=== PATIENT | female | born 1990 | race American Indian/Alaskan Native ===

== ENCOUNTER 2017-07-18 18:15 | Outpatient (CLI) | payer OTHER ==
[2017-07-18] MEDS ORDERED: FOLIC ACID0.4 MG PO (19:49)
[2017-07-18] MEDS ORDERED: PRENATAL TABLE1 EAC1 PO (19:49)
== END 2017-07-19 11:38 | disposition home or self-care (01) ==
LOC: OBS/DEL 18:15
DX: O60.03 Preterm labor without delivery, third trimester (principal); Z34.83 Encounter for supervision of other normal pregnancy, third trimester

== ENCOUNTER 2017-08-13 11:44 | Inpatient (IN) | payer OTHER ==
[~2017-08-13] VITALS: Ht 162.6 cm; Wt 66.2 kg
[~2017-08-13 11:44] MED LIST: FOLIC ACID0.4 MG PO; PRENATAL TABLE1 EAC1 PO
[2017-08-13] MEDS ORDERED: PRENATAL TABLE1 EACH PO (12:21)
== END 2017-08-15 14:14 | disposition home or self-care (01) | DRG 775 ==
LOC: OB/GYN 11:44 → LDR 11:44 → OB/GYN 21:59
PROC: 10E0XZZ Delivery of Products of Conception, External Approach (ICD-10-PCS; principal; 2017-08-13)
PROC: 4A1HXCZ Monitoring of Products of Conception, Cardiac Rate, External Approach (ICD-10-PCS; 2017-08-13)
PROC: 4A033R1 Measurement of Arterial Saturation, Peripheral, Percutaneous Approach (ICD-10-PCS; 2017-08-13)
DX: O60.14X0 Preterm labor third trimester with preterm delivery third trimester, not applicable or unspecified (principal); O23.33 Infections of other parts of urinary tract in pregnancy, third trimester; B96.20 Unspecified Escherichia coli [E. coli] as the cause of diseases classified elsewhere; Z3A.36 36 weeks gestation of pregnancy; Z37.0 Single live birth